=== PATIENT | male | born 1970 | race Caucasian/White ===

== ENCOUNTER 2019-11-12 08:41 | Outpatient (REF) | payer MEDICAID, SELFPAY ==
--- NOTE | 2019-11-12 | US_ITS ---
EXAMINATION: US ABDOMEN COMPLETE CLINICAL INFORMATION: Gastroesophageal reflux with esophagitis. COMPARISON: CT 12/05/2010. TECHNIQUE: Real-time imaging of the abdominal viscera. FINDINGS: PANCREAS: The visualized pancreatic head and body are normal in appearance. The remainder of the pancreas is obscured from visualization by the overlying bowel gas. ABDOMINAL AORTA: The visualized proximal segment is normal in caliber. INFERIOR VENA CAVA: Visualized portions are normal. LIVER: Normal. The liver demonstrates normal size, contour and echogenicity. No focal lesion or intrahepatic biliary duct dilatation. GALLBLADDER: Normal. The gallbladder is physiologically distended without evidence of stones, sludge, polyps, wall thickening or pericholecystic fluid. COMMON BILE DUCT: Normal in caliber measuring 0.3 cm in diameter. RIGHT KIDNEY: Normal. No hydronephrosis. No renal calculi or focal parenchymal lesions. The kidney measures 10.6 cm in maximum dimension. LEFT KIDNEY: Normal. No hydronephrosis. No renal calculi or focal parenchymal lesions. The kidney measures 11.4 cm in maximum dimension. SPLEEN: Normal. The spleen measures 8.1 cm in maximum dimension. FREE FLUID: None. IMPRESSION: Unremarkable abdominal ultrasound.
== END 2019-11-12 08:42 | disposition home or self-care (01) ==
LOC: HO.US 08:41
PROVIDERS: Visit Provider Nurse Practitioner
DX: K21.00 Gastro-esophageal reflux disease with esophagitis, without bleeding (principal)
CPT/HCPCS: 76700

== ENCOUNTER → 2019-12-04 09:34 | Outpatient (BNVA) | payer MEDICAID, SELFPAY | PROVIDERS: PCP Nurse Practitioner Family; Referring Provider Nurse Practitioner Family; Visit Provider Nurse Practitioner | DX: K21.9 Gastro-esophageal reflux disease without esophagitis (principal); K59.00 Constipation, unspecified; R10.10 Upper abdominal pain, unspecified; Z87.11 Personal history of peptic ulcer disease | CPT/HCPCS: 99212 ==

== ENCOUNTER 2019-12-16 12:29 | Outpatient (REF) | payer MEDICAID, SELFPAY | END 2019-12-16 12:30 | disposition home or self-care (01) | LOC: HO.LAB 12:29 | PROVIDERS: Visit Provider Internal Medicine | DX: Z20.828 Contact with and (suspected) exposure to other viral communicable diseases (principal) | CPT/HCPCS: C9803; U0003 ==

== ENCOUNTER → 2020-01-22 07:39 | Outpatient (REF) | payer MEDICAID, SELFPAY ==
--- NOTE | 2020-01-22 07:44 | NM_ITS ---
EXAMINATION: RADIONUCLIDE SOLID FOOD GASTRIC EMPTYING 4-HOUR STUDY CLINICAL INFORMATION: Gastroesophageal reflux disease without esophagitis. COMPARISON: No previous gastric emptying study is available for comparison. TECHNIQUE: A standard meal consisting of 4 oz of Egg Beaters brand tagged with 1.0 mCi Tc-99m Sulfur Colloid, 8 oz water and 2 slices of toast with jelly was administered orally to the patient. Images were obtained using a dual head gamma camera in the anterior and posterior projections over of the stomach immediately post ingestion and at hourly intervals up to 3 hours post ingestion. Images were not obtained at 4 hours due to the minimal retention at 3 hours. The anterior and posterior counts at each time interval were averaged using the geometric mean and expressed as percentage of the immediate post ingestion counts. FINDINGS: There is good visualization of activity in the stomach immediately post ingestion. As the study progresses, there is good clearance of activity from the stomach and visualization of progressively increasing small bowel activity. By the end of the study, there is almost no retention noted in the stomach. Retention in the stomach at each time interval was: 1 hour 23% (normal 37%-90%) 2 hours 15% (normal 30%-60%) 3 hours 2% 4 hours (Not Obtained) (normal 0%-10%) NM/NM gastric emptying study IMPRESSION: Normal solid food gastric emptying study.
== END ==
LOC: HO.NUCMED 07:39
PROVIDERS: PCP Nurse Practitioner Family; Visit Provider Nurse Practitioner
DX: K21.9 Gastro-esophageal reflux disease without esophagitis (principal); R10.10 Upper abdominal pain, unspecified; Z87.11 Personal history of peptic ulcer disease
CPT/HCPCS: 78264; A9541

== ENCOUNTER → 2020-02-05 11:41 | Outpatient (BNVA) | payer MEDICAID, SELFPAY | PROVIDERS: PCP Nurse Practitioner Family; Visit Provider Nurse Practitioner | DX: Z76.89 Persons encountering health services in other specified circumstances (principal) ==

== ENCOUNTER 2020-02-15 22:56 | Emergency (ER) | payer MEDICAID, SELFPAY ==
[2020-02-15 22:57] VITALS: BP 150/86; PULSE 66; RESP 18; TEMP 37.1; O2SAT 97; BMI 23.7
[2020-02-16 01:43] LABS: Basophils Absolute Auto 0.1 X10*3/uL (0.0-0.2); Basophils Percent Auto 0.5 % (0-2); Eosinophils Absolute Auto 0.3 X10*3/uL (0.0-0.4); Hematocrit 39.8 % (42-52); Imm Gran Abs Auto 0.01 X10*3/uL (0.00-0.03); Imm Gran Pct Auto 0.1 % (0.0-0.4); Lymphocytes Absolute Auto 3.3 X10*3/uL (1.2-4.9); Lymphocytes Percent Auto 34.9 % (20-40); MANUAL DIFF FLAG NO; Mean Corpuscular HGB Conc 32.7 g/dl (31.0-36.0); Mean Corpuscular Hemoglobin 30.6 pg (27.0-33.0); Mean Corpuscular Volume 93.6 fL (80-98); Mean Platelet Volume 10.9 fL (9.4-12.4); Monocytes Absolute Auto 0.7 X10*3/uL (0.1-1.2); Monocytes Percent Auto 7.5 % (2-11); Neutrophils Absolute Auto 5.1 X10*3/uL (2.0-8.3); Platelet Count 208 X10*3/uL (160-400); Red Blood Count 4.25 X10*6/uL (4.60-5.80); Red Cell Distribution Width 13.5 % (11.0-16.0); White Blood Count 9.4 X10*3/uL (4.8-10.8)
[2020-02-16] MEDS: 0.9 % Sodium Chloride 1,000 ML 999 ML IV (01:43)
[2020-02-16] MEDS: Ketorolac Tromethamine 30 MG/ML VIAL IVPUSH (01:43)
[2020-02-16 01:44] LABS: Glucose Urine UA NEG (NEG); Leukocyte Esterase Urine NEG (NEG); Nitrite Urine NEG (NEG); Specific Gravity - Urine >= 1.030 (1.005-1.025); Urine Blood NEG (NEG); Urine Ketones NEG (NEG); Urine Protein NEG (NEG-TRACE)
[2020-02-16 01:47] LABS: Appearance Urine CLEAR; Color Urine YELLOW
--- NOTE | 2020-02-16 01:50 | PC.NURSE ---
PT A&O, MEDICATED PER MAR. IV PLACED AND LABS DRAWN AND SENT.
[2020-02-16 01:53] LABS: INTERNATIONAL NORM RATIO 1.1 (0.9-1.1); Prothrombin Time 13.1 SEC (10.8-13.0)
[2020-02-16 01:56] LABS: Partial Thromboplastin Time 33.1 SEC (24.1-38.0)
--- NOTE | 2020-02-16 01:58 | CT_ITS ---
EXAMINATION: CT ABDOMEN AND PELVIS WITH CONTRAST CLINICAL INFORMATION: Right lower quadrant pain. Question appendicitis. COMPARISON: CT 11/18/2010 TECHNIQUE: Multidetector volumetric images were obtained from the superior aspect of the liver through the pubic symphysis following administration 85 mL of Omnipaque 350 intravenous contrast. Sagittal and coronal reformatted images were obtained on the technologist's workstation. Oral contrast: No This CT examination was performed using dose optimization techniques as appropriate, variously including the following: *Automated exposure control *Adjustment of mA and/or kV according to patient size (this includes techniques or standardized protocols for targeted exams where dose is matched to indication/reason for exam; i.e. extremities or head) *Use of iterative reconstruction technique DLP: 503 mGy-cm FINDINGS: LUNG BASES: The visualized lung bases are unremarkable. LIVER, GALLBLADDER, AND BILIARY TREE: The liver is normal in size, shape, and attenuation. No focal hepatic lesion or biliary ductal dilatation is present. The gallbladder is unremarkable with no evidence of radiopaque gallstones, gallbladder wall thickening, or obvious pericholecystic inflammatory changes. PANCREAS: Unremarkable. SPLEEN: Unremarkable. ADRENAL GLANDS: Unremarkable. KIDNEYS AND URETERS: The kidneys are normal in size, shape, and attenuation. No hydronephrosis, hydroureter, or calculi seen. No perinephric stranding. BLADDER: Unremarkable. GASTROINTESTINAL TRACT: The stomach is decompressed with no gross abnormality. Normal caliber small bowel. No obstruction. Normal appendix. No colonic wall thickening or acute inflammatory change. No free air. No free fluid. ABDOMINAL WALL: No significant hernia is appreciated. LYMPH NODES: Normal. VASCULAR: Normal caliber aorta. Duplicated inferior vena cava. PELVIC VISCERA: The prostate and seminal vesicles are unremarkable. OSSEOUS STRUCTURES: No acute or suspicious osseous abnormality. CT/CT abdomen pelvis w con IMPRESSION: No acute findings in the abdomen or pelvis. No inflammatory changes. Normal appendix.
--- NOTE | 2020-02-16 01:58 | ED.ABDPAIN ---
HPI - Abdominal Pain General Chief Complaint: Abdominal Pain Stated Complaint: pelvic pain Time Seen by Provider: 02/16/20 01:09 Source: patient Mode of arrival: ambulatory Limitations: no limitations History of Present Illness HPI narrative: Patient presents to ED for right lower quadrant/right suprapubic be pain for the past 3 days. Patient states no nausea, vomiting, flank pain, fever, chills, testicular pain, testicular swelling, penile discharge, penile lesions. Patient denies any recent trauma to the abdomen. MD elicited complaint: abdominal pain Related Data Home Medications Medication Instructions Recorded Confirmed Lactobacillus acidophilus 10,000 mmu cells PO DAILY 12/03/19 12/03/19 Previous Rx's Medication Instructions Recorded Carafate 1 gram tablet 1 g PO BID #60 tab NS 12/04/19 sennosides 8.6 mg capsule 17.2 mg PO BEDTIME 30 Days #60 cap 12/04/19 pantoprazole 40 mg tablet,delayed 40 mg PO BID #60 tab 12/17/19 release Allergies Allergy/AdvReac Type Severity Reaction Status Date / Time No Known Allergies Allergy Verified 02/05/20 11:42 Review of Systems Review of Systems Yes all other systems are reviewed and are negative Constitutional: Reports as per HPI and Reports no additional constitutional complaints Eyes: Reports as per HPI and Reports no additional eye complaints Reports system reviewed and no additional complaints, except as documented and Reports as per HPI Cardiovascular: Reports as per HPI and Reports no additional cardiovascular complaints Respiratory: Reports as per HPI and Reports no additional respiratory complaints Gastrointestinal: Reports as per HPI, Reports no additional gastrointestinal complaints and Reports abdominal pain (Right lower quad) Musculoskeletal: Reports no additional musculoskeletal complaints and Reports as per HPI Reports system reviewed and no additional complaints, except as documented and Reports as per HPI Psychiatric: Reports no additional psychiatric complaints and Reports as per HPI Physical Exam Vital Signs: Vital Signs: Last Vital Signs Temp 98.7 F 02/15/20 22:57 Pulse 66 02/15/20 22:57 Resp 18 02/15/20 22:57 BP 150/86 H 02/15/20 22:57 Pulse Ox 97 02/15/20 22:57 Body Mass Index 23.7 Const: General: cooperative, healthy appearing, comfortable, no acute distress, well developed, alert and awake Orientation/consciousness: patient oriented x3 HENMT: Head: Yes normal to inspection and Yes No palpable skull fracture present Eyes: General: appearance normal, both eyes and all related structures Neck: Neck: Yes normal visual inspection, Yes full ROM, Yes no lymphadenopathy, Yes no meningeal signs, Yes trachea midline, Yes supple and No tender Chest: Chest palpation & inspection: normal inspection of the chest and normal palpation of entire chest wall Resp: Effort & Inspection: normal respiratory effort and able to speak in complete sentences Auscultation: clear to auscultation bilaterally Cardio: Jugular venous distension: no JVD Heart sounds: S1 normal heart sound present and S2 normal heart sound present GI: Inspection: Yes normal to inspection Palpation (GI): Soft to palpation, not firm, Tenderness to palpation present (GI) in the RLQ and suprapubicly, no guarding and not rigid : Other: Negative for mass in groin to indicate hernia General: No CVA tenderness Male General Exam: Yes normal external exam and No Genital lesions present Penis: normal penis, circumcised, no condylomata, no masses, no nodules, no papules, no pustules, no vesicles, no swelling, no ulcerations and No Genital lesions present Meatus: meatus normal Scrotum: scrotum normal, cremasteric reflex present, no ecchymosis, not edematous, not erythematous, testes descended bilaterally, no masses, no scrotal swelling, no ulcerations and no varicoceles Testes: Testes normal and testicular lie normal Back/Spine/Pelvis: Back: No CVA tenderness and No back tenderness Skin: General skin exam: no rashes or lesions noted Neuro: General: patient oriented x3, no meningeal signs and CN's II-XI intact bilaterally Cranial nerves: Yes CN's II-XII intact bilaterally Extrem: General: Yes normal to inspection and Yes full ROM Psych: Appearance: grossly normal, well kempt and not disheveled Course Course Course Narrative: Patient have patient had basic labs drawn given fluids, and Toradol. Reevaluation(s) Reevaluation #1: Urinalysis negative for blood. Patient was sent for CT scan to rule out appendicitis. Testicular exam and groin exam does not indicate hernia, torsion, or an STD. Case will be signed out to Dr. Parada Time: 02:04 MDM - Abdominal Pain MDM Narrative Medical decision making narrative: Abdominal pain Lab Data Result diagrams: 02/16/20 01:37 02/16/20 01:37 Labs: Lab Results 02/16/20 02/16/20 02/16/20 Range/Units 01:37 01:37 01:37 WBC 9.4 (4.8-10.8) X10*3/uL RBC 4.25 L (4.60-5.80) X10*6/uL Hgb 13.0 L (14.0-18.0) g/dl Hct 39.8 L (42-52) % MCV 93.6 (80-98) fL MCH 30.6 (27.0-33.0) pg MCHC 32.7 (31.0-36.0) g/dl RDW 13.5 (11.0-16.0) % Plt Count 208 (160-400) X10*3/uL MPV 10.9 (9.4-12.4) fL Immature Gran % (Auto) 0.1 (0.0-0.4) % Neut % (Auto) 54.0 (45-73) % Lymph % (Auto) 34.9 (20-40) % [place] % (Auto) 7.5 (2-11) % Eos % (Auto) 3.0 (0-4) % Baso % (Auto) 0.5 (0-2) % Lymph # (Auto) 3.3 (1.2-4.9) X10*3/uL [place]linger # (Auto) 0.7 (0.1-1.2) X10*3/uL Eos # (Auto) 0.3 (0.0-0.4) X10*3/uL Baso # (Auto) 0.1 (0.0-0.2) X10*3/uL Abs Immat Gran (auto) 0.01 (0.00-0.03) X10*3/uL Absolute Neuts (auto) 5.1 (2.0-8.3) X10*3/uL Absolute Nucleated RBC 0.000 (0.0-0.012) X10*3/uL Nucleated RBC % (auto) 0.0 (0.0-0.2) /100WBC PT 13.1 H (10.8-13.0) SEC INR 1.1 (0.9-1.1) APTT 33.1 (24.1-38.0) SEC Urine Color YELLOW Urine Appearance CLEAR Urine pH 6.0 (5.0-8.0) Ur Specific [place] >= 1.030 H (1.005-1.025) Urine Protein NEG (NEG-TRACE) MG/DL Urine Glucose (UA) NEG (NEG) MG/DL Urine Ketones NEG (NEG) MG/DL Urine Blood NEG (NEG) Urine Nitrite NEG (NEG) Ur Leukocyte Esterase NEG (NEG) Discharge Plan Discharge Clinical Impression: Abdominal pain Prescriptions: No Action pantoprazole [Protonix] 40 mg tablet,delayed release (DR/EC) 40 mg PO BID Qty: 60 RF: 3 Lactobacillus acidophilus [Acidophilus] Capsule 10,000 mmu cells PO DAILY RF: 0 senna 8.6 mg capsule 17.2 mg PO BEDTIME 30 Days Qty: 60 RF: 1 sucralfate [Carafate] 1 gram tablet 1 g PO BID Qty: 60 RF: 0 PMFSH Past Medical History Medical History (Updated 02/16/20 @ 02:06 by MAI Caballero) History of Helicobacter pylori infection Surgical History (Updated 12/04/19 @ 09:44 by JOSE Jessica) History of esophagogastroduodenoscopy (EGD) Hx of colonoscopy Family History Family History (Updated 12/04/19 @ 09:41 by JOSE Jessica) Father HTN (hypertension) Prostate cancer Asthma Kidney stones Mother HTN (hypertension) Social History Social History (Updated 02/05/20 @ 11:43 by JOSE Jessica) Alcohol intake: current Alcohol intake frequency: holidays/special occasions only Smoking Status: Never smoker Advance Directives: No Advance Directives Information Provided: No
[2020-02-16 02:00] VITALS: BP 150/86; PULSE 66; RESP 18; TEMP 37.1; O2SAT 97
[2020-02-16 02:22] LABS: Alanine Aminotransferase 33 U/L (0-40); Albumin Level 3.9 g/dL (3.5-5.0); Alkaline Phosphatase 57 U/L (39-117); Anion Gap 13 (12-20); Aspartate Amino Transferase 25 U/L (5-37); Bilirubin Direct < 0.2 mg/dL (0.0-0.5); Bilirubin Total 0.3 mg/dL (0.0-1.0); Blood Urea Nitrogen 20 mg/dL (9-16); Calcium 8.5 mg/dL (8.4-10.2); Carbon Dioxide 24 mmol/L (22-29); Chloride 107 mmol/L (96-108); Creatinine Clr Calc Pharmacy 120.6; Estimated Glomerular Filt Rate > 60; Glucose Random 99 mg/dL (60-115); Lipase 37 U/L (8-78); Potassium 4.3 mmol/l (3.3-5.1); Sodium 140 mmol/L (135-145); Total Protein 7.2 g/dL (6.5-8.0)
[2020-02-16] MEDS: iohexoL 350 MG/ML 100 ML INFUS..BTL 85 ML IV (02:49)
== END 2020-02-16 04:43 | disposition home or self-care (01) ==
PROVIDERS: Physician Assistant; Emergency Provider Emergency Medicine Emergency Medical Services; PCP Nurse Practitioner Family
DX: R10.31 Right lower quadrant pain (principal); Z79.899 Other long term (current) drug therapy
CPT/HCPCS: 36415; 74177; 80053; 80076; 81003; 82248; 83690; 85025; 85610; 85730; 96361; 96374; 99284; J1885; Q9967

== ENCOUNTER → 2020-03-04 11:39 | Outpatient (BNVA) | payer MEDICAID, SELFPAY | PROVIDERS: PCP Nurse Practitioner Family; Visit Provider Nurse Practitioner | DX: Z76.89 Persons encountering health services in other specified circumstances (principal) ==

== ENCOUNTER 2020-03-29 11:16 | Emergency (ER) | payer MEDICAID, SELFPAY ==
--- NOTE | ~2020-03-29 | CT_ITS ---
EXAMINATION: CT HEAD WITHOUT CONTRAST CLINICAL INFORMATION: Headache COMPARISON: None TECHNIQUE: Contiguous axial imaging was performed from the skull base to vertex without intravenous administration of contrast. This CT examination was performed using dose optimization techniques as appropriate, variously including the following: *Automated exposure control *Adjustment of mA and/or kV according to patient size (this includes techniques or standardized protocols for targeted exams where dose is matched to indication/reason for exam; i.e. extremities or head) *Use of iterative reconstruction technique DLP: 772 mGy-cm FINDINGS: There is no evidence of acute intracranial hemorrhage or territorial infarction. No abnormal mass effect or midline shift is seen. Alonso to white matter differentiation is well preserved. No extra-axial fluid collections are identified. The ventricles are normal in size. There is no abnormal attenuation within the brain parenchyma. The osseous structures and soft tissues are normal. The mastoid air cells and visualized portions of the paranasal sinuses are well aerated. CT/CT head/brain wo con IMPRESSION: Unremarkable exam.
[2020-03-29 11:48] VITALS: BP 158/93; PULSE 68; RESP 18; TEMP 36.3; O2SAT 99; BMI 24429.3
[2020-03-29 15:42] VITALS: BP 127/84; PULSE 70; RESP 16; O2SAT 98
--- NOTE | 2020-03-29 15:58 | ED_ITS ---
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 States he has had this headache since 2 days now also checked his blood pressure at home and w as very high with a reading of 150/93 states he is concerned he has never had high blood pressure before. He otherwise denies any neck pain, fever, weight loss. Does report the headache does make him slightly dizzy for past several days as well. Denies any vision changes, gait abnormality. States the headache has been present and gradually getting worse over past couple days. MD elicited complaint: headache Onset (ago): day(s) Onset description: gradually Location: left and frontal Quality & Timing: aching Relieving factors: NSAIDs (Will go away with ibuprofen but come back) Associated symptoms: none Treatments prior to arrival: none Related Data Home Medications Medication Instructions Recorded Confirmed Lactobacillus acidophilus 10,000 mmu cells PO DAILY 12/03/19 12/03/19 Previous Rx's Medication Instructions Recorded pantoprazole 40 mg tablet,delayed 40 mg PO BID #60 tab 03/04/20 release sennosides 8.6 mg capsule 17.2 mg PO BEDTIME PRN 30 Days #60 03/04/20 cap amoxicillin-pot clavulanate 1 tab PO Q12H 7 Days #14 tab 03/29/20 [Augmentin] naproxen 500 mg PO BID PRN #14 tab 03/29/20 Allergies Allergy/AdvReac Type Severity Reaction Status Date / Time No Known Allergies Allergy Verified 02/05/20 11:42 Review of Systems Review of Systems: Constitutional: No Weight loss, No Fever, No Chills, No Night Sweats, No Fatigue, No Malaise ENT/Mouth: No Hearing loss, No Ear Pain, + Nasal Congestion, No Sinus Pain, No Hoarseness, No sore throat, No Rhinorrhea, No Swallowing Difficulty Eyes: No Eye Pain, No Swelling, No Redness, No Foreign Body, No Discharge, No Vision Changes Cardiovascular: No Chest Pain, No SOB, No Dyspnea on Exertion, No Orthopnea, No Edema, No Palpitations Respiratory: No Cough, No Sputum, No Wheezing, No Smoke Exposure, No Dyspnea Gastrointestinal: No Nausea, No Vomiting, No Diarrhea, No Constipation, No abdominal Pain, No Hematochezia, No Melena Genitourinary: No Dysuria, No Urinary Frequency, No Hematuria, No Urinary Incontinence, No Urgency, No Flank Pain, No Urinary Flow Changes, No Hesitancy Musculoskeletal: No joint pain, No Myalgias, No Joint Swelling Skin: No Skin Lesions, No rash Neuro: No Weakness, No Numbness, No Paresthesias, No Loss of Consciousness, No Dizziness, + Headache Psych: No Social Issues Heme/Lymph: No Bruising, No Bleeding,No Lymphadenopathy Endocrine: No Polyuria, No Polydipsia, No Temperature Intolerance Yes all other systems are reviewed and are negative [facility] Past Medical History Medical History (Updated 03/30/20 @ 00:00 by Jess Ramirez) History of Helicobacter pylori infection Surgical History (Updated 12/04/19 @ 09:44 by JOSE Jessica) History of esophagogastroduodenoscopy (EGD) Hx of colonoscopy Family History Family History (Updated 12/04/19 @ 09:41 by JOSE Jessica) Father HTN (hypertension) Prostate cancer Asthma Kidney stones Mother HTN (hypertension) Social History Social History (Updated 03/04/20 @ 11:37 by Bertha Martin) Household Members: Family Alcohol intake: unknown Smoking Status: Unknown if ever smoked Advance Directives: Yes Advance Directives Information Provided: Yes Advance Directives on File: No Current occupational status: employed Current occupation: [employer] Physical Exam Vital Signs: Vital Signs: Last Vital Signs Temp 98.3 F 03/29/20 16:53 Pulse 56 03/29/20 16:53 Resp 16 03/29/20 16:53 BP 144/86 H 03/29/20 16:53 Pulse Ox 99 03/29/20 16:53 Body Mass Index 23.7 Reviewed Const: General: cooperative and healthy appearing; No acute distress or intoxicated appearing Nutritional Appearance: average body habitus Orientation/consciousness: patient oriented x3 HENMT: Head: Yes normal to inspection Ears: hearing grossly normal bilaterally Face and sinus: Yes sinus tenderness (Bilateral frontal sinuses left more than right.) Eyes: General: appearance normal, both eyes and all related structures Visual Solorio: normal visual solorio by confrontation Neck: Neck: Yes normal visual inspection, No positive Brudzinski's sign, No positive Kernig's sign and No tender Thyroid: Thyroid normal Chest: Chest palpation & inspection: normal inspection of the chest Resp: Effort & Inspection: normal respiratory effort Auscultation: clear to auscultation bilaterally Cardio: Jugular venous distension: no JVD Rhythm: regular rhythm Heart sounds: S1 normal heart sound present and S2 normal heart sound present GI: Inspection: Yes normal to inspection Percussion: Yes normal to percussion Auscultation: normal bowel sounds : General: Yes no CVA tenderness Back/Spine/Pelvis: Back: no CVA tenderness Skin: General skin exam: no rashes or lesions noted Neuro: General: patient oriented x3 Extrem: General: Yes normal to inspection NIH Stroke Scale Internal: Initial- Upon Arrival Level of Consciousness: Alert Level of Consciousness Questions: Answers both questions correctly Level of Consciousness Commands: Performs both tasks correctly Best Gaze: Normal Visual: No visual loss Facial Palsy: Normal Motor Arm (Right): No drift Motor Arm (Left): No drift Motor Leg (Right): No drift Motor Leg (Left): No drift Limb Ataxia: Absent Sensory: Normal Best Language: No aphasia Dysarthia: Normal Extinction and Inattention: No abnormality Score: 0 Course Course Course Narrative: Seems very fixated on blood pressure repeat blood pressure of 144/86 pulse of 56 temperature of 98.3 degrees pulse ox of 99%. At this point I would not initiate any pharmacological treatment for this pressure some lifestyle modification, as it relates to his headache head CT negative his exam is more consistent with frontal sinusitis will start him on antibiotics. He is nontoxic appearing. No meningeal sign. No findings to suggest cerebellar involvement, ambulatory steady gait. MDM - Headache Differential Diagnosis Differential diagnosis: Likely migraine, tension headache, headache and sinusitis; Unlikely subarachnoid hemorrhage, meningitis and postconcussion syndrome Medical Records Attestation: I reviewed the patient's medical records. Lab Data Attestation: I reviewed the patient's lab results. Result diagrams: 03/29/20 16:36 03/29/20 16:36 Labs: Lab Results 03/29/20 03/29/20 03/29/20 Range/Units 16:35 16:36 16:36 WBC 9.0 (4.8-10.8) X10*3/uL RBC 4.85 (4.60-5.80) X10*6/uL Hgb 14.9 (14.0-18.0) g/dl Hct 44.7 (42-52) % MCV 92.2 (80-98) fL MCH 30.7 (27.0-33.0) pg MCHC 33.3 (31.0-36.0) g/dl RDW 13.2 (11.0-16.0) % Plt Count 209 (160-400) X10*3/uL MPV 10.7 (9.4-12.4) fL Immature Gran % (Auto) 0.2 (0.0-0.4) % Neut % (Auto) 72.1 (45-73) % Lymph % (Auto) 20.8 (20-40) % [place] % (Auto) 5.3 (2-11) % Eos % (Auto) 1.3 (0-4) % Baso % (Auto) 0.3 (0-2) % Lymph # (Auto) 1.9 (1.2-4.9) X10*3/uL [place] # (Auto) 0.5 (0.1-1.2) X10*3/uL Eos # (Auto) 0.1 (0.0-0.4) X10*3/uL Baso # (Auto) 0.0 (0.0-0.2) X10*3/uL Abs Immat Gran (auto) 0.02 (0.00-0.03) X10*3/uL Absolute Neuts (auto) 6.5 (2.0-8.3) X10*3/uL Absolute Nucleated RBC 0.000 (0.0-0.012) X10*3/uL Nucleated RBC % (auto) 0.0 (0.0-0.2) /100WBC ESR 19 H (0-15) MM/HR PT (10.8-13.0) SEC INR (0.9-1.1) APTT (24.1-38.0) SEC Sodium 139 (135-145) mmol/L Potassium 4.3 (3.3-5.1) mmol/L Chloride 103 (96-108) mmol/L Carbon Dioxide 27 (22-29) mmol/L Anion Gap 13 (12-20) BUN 15 (9-16) mg/dL Creatinine 0.89 (0.5-1.4) mg/dL Estim Creat Clear Calc 105.7 Estimated GFR > 60 Random Glucose 76 (60-115) mg/dL Calcium 9.3 D (8.4-10.2) mg/dL Total Bilirubin 1.1 H (0.0-1.0) mg/dL AST 30 (5-37) U/L ALT 41 H (0-40) U/L Alkaline Phosphatase 49 (39-117) U/L C-Reactive Protein 0.11 (< or = 0.50) mg/dL Total Protein 7.8 (6.5-8.0) g/dL Albumin 4.6 (3.5-5.0) g/dL Coronavirus (PCR) (Negative) Influenza Type A (PCR) (Negative) Influenza Type B (PCR) (Negative) RSV RNA Qual (PCR) (Negative) 03/29/20 03/29/20 Range/Units 16:36 17:08 WBC (4.8-10.8) X10*3/uL RBC (4.60-5.80) X10*6/uL Hgb (14.0-18.0) g/dl Hct (42-52) % MCV (80-98) fL MCH (27.0-33.0) pg MCHC (31.0-36.0) g/dl RDW (11.0-16.0) % Plt Count (160-400) X10*3/uL MPV (9.4-12.4) fL Immature Gran % (Auto) (0.0-0.4) % Neut % (Auto) (45-73) % Lymph % (Auto) (20-40) % [place] % (Auto) (2-11) % Eos % (Auto) (0-4) % Baso % (Auto) (0-2) % Lymph # (Auto) (1.2-4.9) X10*3/uL [place] # (Auto) (0.1-1.2) X10*3/uL Eos # (Auto) (0.0-0.4) X10*3/uL Baso # (Auto) (0.0-0.2) X10*3/uL Abs Immat Gran (auto) (0.00-0.03) X10*3/uL Absolute Neuts (auto) (2.0-8.3) X10*3/uL Absolute Nucleated RBC (0.0-0.012) X10*3/uL Nucleated RBC % (auto) (0.0-0.2) /100WBC ESR (0-15) MM/HR PT 13.3 H (10.8-13.0) SEC INR 1.1 (0.9-1.1) APTT 35.2 (24.1-38.0) SEC Sodium (135-145) mmol/L Potassium (3.3-5.1) mmol/L Chloride (96-108) mmol/L Carbon Dioxide (22-29) mmol/L Anion Gap (12-20) BUN (9-16) mg/dL Creatinine (0.5-1.4) mg/dL Estim Creat Clear Calc Estimated GFR Random Glucose (60-115) mg/dL Calcium (8.4-10.2) mg/dL Total Bilirubin (0.0-1.0) mg/dL AST (5-37) U/L ALT (0-40) U/L Alkaline Phosphatase (39-117) U/L C-Reactive Protein (< or = 0.50) mg/dL Total Protein (6.5-8.0) g/dL Albumin (3.5-5.0) g/dL Coronavirus (PCR) NEGATIVE (Negative) Influenza Type A (PCR) NEGATIVE (Negative) Influenza Type B (PCR) NEGATIVE (Negative) RSV RNA Qual (PCR) NEGATIVE (Negative) Imaging Data CT scan - head: Radiologist's impression: [address] [id number] Scan ReportSigned Patient: Ehsan Fritz BMR#: [id number]: 0Acct:[id number]/Sex: 49 / MADM Date: 03/29/20Loc: E[address]ttm[address] Dr: Ordering Physician: Padilla Wallace NP Date of Service: 03/29/20 Procedure(s): CT head/brain wo con Accession Number(s): [id number] cc: Padilla Wallace MERCHANDISE MANAGER~ EXAMINATION: CT HEAD WITHOUT CONTRAST CLINICAL INFORMATION: Headache COMPARISON: None TECHNIQUE: Contiguous axial imaging was performed from the skull base to vertex without intravenous administration of contrast. This CT examination was performed using dose optimization techniques as appropriate, variously including the following: *Automated exposure control *Adjustment of mA and/or kV according to patient size (this includes techniques or standardized protocols for targeted exams where dose is matched to indication/reason for exam; i.e. extremities or head) *Use of iterative reconstruction technique DLP: 772 mGy-cm FINDINGS: There is no evidence of acute intracranial hemorrhage or territorial infarction. No abnormal mass effect or midline shift is seen. Alonso to white matter differentiation is well preserved. No extra-axial fluid collections are identified. The ventricles are normal in size. There is no abnormal attenuation within the brain parenchyma. The osseous structures and soft tissues are normal. The mastoid air cells and visualized portions of the paranasal sinuses are well aerated. CT/CT head/brain wo con IMPRESSION: Unremarkable exam. Dictated By:JERI WELLER MDSigned By:<Electronically signed by JERI WELLER MD in OV>03/29/20 1628 DD/ 1603TD/TT: Broadcast Supervisor: AARON Discharge Plan Discharge Clinical Impression: Sinusitis, Headache Patient Disposition: Home, Self-Care Instructions: Sinusitis (ED) Prescriptions: New naproxen 500 mg tablet 500 mg PO BID PRN (Reason: pain) Qty: 14 RF: 0 amoxicillin-pot clavulanate [Augmentin] 875-125 mg tablet 1 tab PO Q12H 7 Days Qty: 14 RF: 0 No Action pantoprazole [Protonix] 40 mg tablet,delayed release (DR/EC) 40 mg PO BID Qty: 60 RF: 3 senna 8.6 mg capsule 17.2 mg PO BEDTIME PRN (Reason: constipation) 30 Days Qty: 60 RF: 1 Lactobacillus acidophilus [Acidophilus] Capsule 10,000 mmu cells PO DAILY RF: 0 Referrals: Bertha Resendiz DO [Primary Care Provider] - 1 week Interventions: ED Discharge Assessment Last Done: 03/29/20 19:00 Discharge Date/Time: 03/29/20 19:00
[2020-03-29] MEDS: Acetaminophen 325 MG TABLET 975 MG PO (16:14)
[2020-03-29 16:42] LABS: MANUAL DIFF FLAG NO
[2020-03-29 16:45] LABS: Basophils Percent Auto 0.3 % (0-2); Eosinophils Absolute Auto 0.1 X10*3/uL (0.0-0.4); Eosinophils Percent Auto 1.3 % (0-4); Hematocrit 44.7 % (42-52); Hemoglobin 14.9 g/dl (14.0-18.0); Imm Gran Abs Auto 0.02 X10*3/uL (0.00-0.03); Imm Gran Pct Auto 0.2 % (0.0-0.4); Lymphocytes Absolute Auto 1.9 X10*3/uL (1.2-4.9); Lymphocytes Percent Auto 20.8 % (20-40); Mean Corpuscular HGB Conc 33.3 g/dl (31.0-36.0); Mean Corpuscular Hemoglobin 30.7 pg (27.0-33.0); Mean Corpuscular Volume 92.2 fL (80-98); Mean Platelet Volume 10.7 fL (9.4-12.4); Monocytes Absolute Auto 0.5 X10*3/uL (0.1-1.2); Monocytes Percent Auto 5.3 % (2-11); Neutrophils Absolute Auto 6.5 X10*3/uL (2.0-8.3); Neutrophils Percent Auto 72.1 % (45-73); Platelet Count 209 X10*3/uL (160-400); Red Blood Count 4.85 X10*6/uL (4.60-5.80); Red Cell Distribution Width 13.2 % (11.0-16.0)
[2020-03-29 16:53] VITALS: BP 144/86; PULSE 56; RESP 16; TEMP 36.8; O2SAT 99
[2020-03-29 16:55] LABS: INTERNATIONAL NORM RATIO 1.1 (0.9-1.1); Prothrombin Time 13.3 SEC (10.8-13.0)
[2020-03-29 16:58] LABS: Partial Thromboplastin Time 35.2 SEC (24.1-38.0)
[2020-03-29 17:13] LABS: Alanine Aminotransferase 41 U/L (0-40); Albumin Level 4.6 g/dL (3.5-5.0); Alkaline Phosphatase 49 U/L (39-117); Anion Gap 13 (12-20); Aspartate Amino Transferase 30 U/L (5-37); Bilirubin Total 1.1 mg/dL (0.0-1.0); Blood Urea Nitrogen 15 mg/dL (9-16); C Reactive Protein 0.11 mg/dL (< or = 0.50); Calcium 9.3 mg/dL (8.4-10.2); Carbon Dioxide 27 mmol/L (22-29); Chloride 103 mmol/L (96-108); Estimated Glomerular Filt Rate > 60; Glucose Random 76 mg/dL (60-115); Potassium 4.3 mmol/L (3.3-5.1); Sodium 139 mmol/L (135-145); Total Protein 7.8 g/dL (6.5-8.0)
[2020-03-29 17:23] LABS: Erythrocyte Sedimentation Rate 19 MM/HR (0-15)
[2020-03-29 17:37] VITALS: BMI 23.7
[2020-03-29 17:40] LABS: Creatinine Clr Calc Pharmacy 105.7
[2020-03-29 17:54] LABS: Influenza A PCR NEGATIVE (Negative); Influenza B PCR NEGATIVE (Negative); Resp Syncy Virus RNA Qual PCR NEGATIVE (Negative); SARS COV2 PCR INHOUSE NEGATIVE (Negative)
== END 2020-03-29 19:00 | disposition home or self-care (01) ==
PROVIDERS: Nurse Practitioner Primary Care; Emergency Provider Internal Medicine; PCP Family Medicine
DX: J32.9 Chronic sinusitis, unspecified (principal); Z20.822 Contact with and (suspected) exposure to COVID-19; Z79.899 Other long term (current) drug therapy
CPT/HCPCS: 0241U; 36415; 70450; 80053; 85025; 85610; 85652; 85730; 86140; 99284

== ENCOUNTER → 2020-04-28 11:01 | Outpatient (BNVA) | payer MEDICAID, SELFPAY | PROVIDERS: PCP Internal Medicine; Visit Provider Surgery | DX: K40.20 Bilateral inguinal hernia, without obstruction or gangrene, not specified as recurrent (principal) | CPT/HCPCS: 99202 ==

== ENCOUNTER 2020-05-07 06:43 | Day surgery (SDC) | payer MEDICAID, SELFPAY ==
--- NOTE | 2020-05-06 09:02 | P.CONAN_ITS ---
Documented by User: Yue Burciaga 05/06/20 09:11 HPI - Anesthesia Eval Consult details Narrative: 49yo M for Bilateral Hernia Repair Inguinal PMFSH Active Problems Active Problems: All Active Problems (Updated 04/28/20 @ 12:29 by Des Fitzgerald MD) Bilateral inguinal hernia (Acute) Upper abdominal pain (Acute) Constipation (Acute) History of peptic ulcer disease (Acute) GERD (gastroesophageal reflux disease) (Acute) Past Medical History Medical History GERD (gastroesophageal reflux disease) History of Helicobacter pylori infection History of peptic ulcer disease Family History Family History Father HTN (hypertension) Prostate cancer Asthma Kidney stones Mother HTN (hypertension) Surgical History Surgical History History of esophagogastroduodenoscopy (EGD) Hx of colonoscopy Social History Social History Household Members: Family Alcohol intake: unknown Smoking Status: Never smoker Use of substances other than those prescribed or required for medical reasons: No Advance Directives: No Advance Directives Information Provided: Yes Current occupational status: employed Current occupation: [employer] Allergies Allergy/AdvReac Type Severity Reaction Status Date / Time No Known Allergies Allergy Verified 05/07/20 06:50 Home Medications Medication Instructions Recorded Confirmed Last Taken Type Lactobacillus acidophilus 10,000 mmu cells PO DAILY 12/03/19 04/28/20 Unknown History Exam Exam Date and Time: May 06, 2020 09 Pertinent Lab Results Pertinent Lab Results: Laboratory Tests 03/29/20 03/29/20 16:36 16:36 WBC 9.0 Hgb 14.9 Hct 44.7 Plt Count 209 Sodium 139 Potassium 4.3 Chloride 103 Carbon Dioxide 27 BUN 15 Creatinine 0.89 Assessment and Plan Assessment Anesthesia Assessment: Chart Reviewed Documented by User: Erica Ramos 05/07/20 08:05 [facility] Past Medical History Medical History GERD (gastroesophageal reflux disease) History of Helicobacter pylori infection History of peptic ulcer disease Family History Family History Father HTN (hypertension) Prostate cancer Asthma Kidney stones Mother HTN (hypertension) Surgical History Surgical History History of esophagogastroduodenoscopy (EGD) Hx of colonoscopy Social History Social History Household Members: Family Alcohol intake: unknown Smoking Status: Never smoker Use of substances other than those prescribed or required for medical reasons: No Advance Directives: No Advance Directives Information Provided: Yes Current occupational status: employed Current occupation: [employer] Allergies Allergy/AdvReac Type Severity Reaction Status Date / Time No Known Allergies Allergy Verified 05/07/20 06:50 Home Medications Medication Instructions Recorded Confirmed Last Taken Type Lactobacillus acidophilus 10,000 mmu cells PO DAILY 12/03/19 04/28/20 Unknown History Exam Airway Mallampati Class: II TM Dist: >3cm Neck ROM: Full Assessment and Plan Assessment Anesthesia Assessment: Anesthesia Plan Discussed and Chart Reviewed Final Anesthetic Review NPO: Yes ASA Class: II Final Preanesthetic Review: No Changes in Pt Med Stat, Meds/Allgs Chart Reviewed, Consent Obtained/Reviewed and Anes Risks/Benef Reviewed Patient Risk: Low Procedure Risk: Low Assessment/Block/Sedation in SS: Assess/Block/Sedation-SS Anesthetic Plan Anesthetic Plan: GA Disposition: Standard PACU
[2020-05-06 10:47] VITALS: BMI 23.6
[2020-05-07] VITALS (16 sets, daily range): BP systolic 106–138; BP diastolic 58–81; PULSE 65–85; RESP 16–18; TEMP 36.1–36.2; O2SAT 97–99; BMI 23.7
[2020-05-07] MEDS: Lactated Ringers 1,000 ML 100 ML IVCONT (07:14)
--- NOTE | 2020-05-07 07:50 | MHC.SHP ---
Pre-Procedural Eval Section A The patient is an INPATIENT: No Changes since office visit: Yes Patient answered all questions; No Cold of Flu in the past 2 weeks, No New Medical Problems and No Changes in Medication The History & Physical has been completed within 30 days and I have reviewed it.: Yes Section B Chief Complaint: inguinal hernia Allergies: Allergies Allergy/AdvReac Type Severity Reaction Status Date / Time No Known Allergies Allergy Verified 05/07/20 06:50 Plan Diagnosis/Plan: Unchanged I have reviewed the history and physical and performed a pertinent physical examination on my patient. No changes have occurred unless specified.
--- NOTE | 2020-05-07 10:50 | P.OP_ITS ---
Operative Note Operative Note Date of Service: 05/07/20 Narrative: Preoperative diagnosis: Bilateral inguinal hernias Postoperative diagnosis: Same Procedure: Repair of bilateral inguinal hernias with mesh Surgeon: Des Fitzgerald MD Physician Practice Market Manager: NONE Anesthesia: General LMA Indications for procedure: 49-year-old male with palpable bilateral inguinal hernias noting pain especially on the right side. Operative findings: Bilateral indirect inguinal hernias. Specimen: Hernia sac and lipoma left side Estimated blood loss: 5 mL Complications: None Procedure details: Patient was brought to the OR and placed in a supine position. After administering general anesthesia the patient's abdomen was prepped with ChloraPrep and draped in sterile fashion. A surgical time-out called the consent confirmed. Patient received preoperative antibiotics and Venodyne boots were in place. Local anesthesia consisting of 0.5% Sensorcaine with epinephrine was infiltrated over the bilateral inguinal ligaments. Starting on the left side incision was made over the left inguinal ligament carried out through subcutaneous tissue past Rudy's fascia and up to the external oblique aponeurosis. Additional local was infiltrated below the aponeurosis. This was then opened with a scalpel and widened with the Metzenbaum scissors. The spermatic cord was then dissected from the surrounding inguinal canal. This was then retracted using a Toshia drain. The floor of the inguinal canal was found to be intact with no hernia. Fibers of the cremasteric muscle were then in a small hernia sac identified. There is also a small lipoma of the cord. The lipoma of the co rd was removed. Hernia sac was then dissected free from the surrounding cord contents down to the internal ring. This was then ligated with a 0 Polysorb suture and excised. This was sent to pathology as a specimen labeled hernia sac left side. Fibers of the internal oblique aponeurosis were then followed by the transversalis aponeurosis. The preperitoneal space was then entered and widened with an open Ray-Kilo sponge. A medium PHS mesh was then obtained. The circular underlay was placed in the preperitoneal space the overlay was then secured to the pubic tubercle conjoined tendon and shelving edge of the inguinal ligament using a 0 Polysorb suture. A slit was made in the mesh at the internal ring and wrapped around the spermatic cord. This was then secured to the shelving edge of the inguinal ligament using a 0 Polysorb suture. The remainder of the mesh was placed below the aponeurosis laterally. After assuring adequate hemostasis the wounds were irrigated and suctioned dry. Additional local was infiltrated at this time. The external oblique aponeurosis was then closed using a running 2 0 Polysorb suture. Rudy's fascia and dermis were reapproximated using interrupted 3-0 Polysorb sutures. Skin was then closed using a running subcuticular 4 0 Polysorb suture. Attention was then directed to the right inguinal hernia. Incision was then made over the inguinal ligament carried out through subcutaneous tissue, past Rudy's fascia and up to the external oblique aponeurosis. Additional local was infiltrated below the aponeurosis. Incision was made with a scalpel in the aponeurosis and widened with the Metzenbaum scissors. The spermatic cord was then dissected from the surrounding inguinal contents. This was then retracted using a Toshia drain. No direct hernia could be identified on the floor. A dense adhesion was noted to the external oblique aponeurosis which appeared to be chronic inflammation from a indirect hernia. Fibers of the cremasteric muscle were then . A dense thick indirect sac was identified. This was dissected from the dense adhesions up to the internal ring. The sac was then reduced into the abdominal cavity. Attention was then directed to the floor of the inguinal canal. Fibers of the internal oblique and transversalis aponeurosis were then and the preperitoneal space entered. This was then widened with open Ray-Kilo sponge. A medium PHS mesh was then obtained. The circular underlay was placed in the preperitoneal space and the overlay was secured to the pubic tubercle, conjoined tendon, and shelving edge of the inguinal ligament using a 0 Polysorb suture. A slit was made in the mesh at the internal ring and wrapped around the spermatic cord. This was then secured to the shelving edge of the inguinal ligament. The remainder of the mesh was placed below the external oblique aponeurosis. Wounds were then irrigated with saline solution and suctioned dry. Wounds were checked for hemostasis. Additional local was infiltrated in the subcutaneous tissue. External oblique aponeurosis was then closed using a running 2 0 Polysorb suture. Rudy's fascia and dermis reapproximated using interrupted 3- 0 Polysorb sutures. Skin was then closed using a running subcuticular 4 0 Polysorb suture. Steri-Strips 2 x 2 gauze and Tegaderm were applied to both incisions. The patient tolerated the procedure well. Sponge, instrument, needle counts were reported as correct. The patient was transferred to PACU in stable condition.
[2020-05-07] MEDS: oxyCODONE HCl Immed Release 5 MG TABLET PO ×2 (11:01→11:51)
[2020-05-07] MEDS: fentaNYL citrate/PF 100 MCG/2 ML VIAL 50 MCG IVPUSH (11:50)
[2020-05-07] MEDS: Acetaminophen 325 MG TABLET 650 MG PO (11:51)
== END 2020-05-07 14:45 | disposition home or self-care (01) ==
PROVIDERS: PCP Family Medicine; Visit Provider Surgery
PROC: (CPT 49505; principal; 2020-05-07 08:30)
DX: K40.20 Bilateral inguinal hernia, without obstruction or gangrene, not specified as recurrent (principal); D17.6 Benign lipomatous neoplasm of spermatic cord; K66.0 Peritoneal adhesions (postprocedural) (postinfection); Z87.11 Personal history of peptic ulcer disease; Z86.19 Personal history of other infectious and parasitic diseases; Z79.899 Other long term (current) drug therapy
CPT/HCPCS: 49505 ×2; 88302; 88304; C1781; J0690; J1100; J2250; J2405; J3010

== ENCOUNTER 2020-05-19 09:58 | Outpatient (REF) | payer MEDICAID, SELFPAY ==
--- NOTE | ~2020-05-19 | XR_ITS ---
EXAMINATION: XR KNEE, LEFT CLINICAL INFORMATION: Left knee pain. COMPARISON: None TECHNIQUE: Four views of the left knee. FINDINGS: Bones and soft tissues are normal. No fracture or joint effusion. Alignment is anatomic. Joint spaces are well maintained. No abnormal soft tissue calcification. XR/XR knee LT 4V IMPRESSION: Unremarkable examination.
== END 2020-05-19 09:59 | disposition home or self-care (01) ==
LOC: HO.XRAY 09:58
PROVIDERS: PCP Internal Medicine; Visit Provider Internal Medicine
DX: M25.562 Pain in left knee (principal); K40.20 Bilateral inguinal hernia, without obstruction or gangrene, not specified as recurrent
CPT/HCPCS: 73564; 99212

== ENCOUNTER → 2020-05-27 14:05 | Outpatient (BNVA) | payer MEDICAID, SELFPAY | PROVIDERS: PCP Family Medicine; Visit Provider Nurse Practitioner ==

== ENCOUNTER → 2020-06-16 11:18 | Outpatient (BNVA) | payer MEDICAID, SELFPAY | PROVIDERS: PCP Internal Medicine; Referring Provider Internal Medicine; Visit Provider Surgery | DX: Z48.815 Encounter for surgical aftercare following surgery on the digestive system (principal); Z87.19 Personal history of other diseases of the digestive system | CPT/HCPCS: 99212 ==

== ENCOUNTER → 2020-07-16 10:11 | Outpatient (BNVA) | payer MEDICAID, SELFPAY | PROVIDERS: PCP Internal Medicine; Visit Provider Surgery | DX: Z48.815 Encounter for surgical aftercare following surgery on the digestive system (principal); Z87.19 Personal history of other diseases of the digestive system | CPT/HCPCS: 99212 ==

== ENCOUNTER 2020-12-01 09:00 | Outpatient (REF) | payer MEDICAID, SELFPAY | END 2020-12-01 09:01 | disposition home or self-care (01) | LOC: CF 09:00 | PROVIDERS: Visit Provider Nurse Practitioner | DX: K21.9 Gastro-esophageal reflux disease without esophagitis (principal); Z87.11 Personal history of peptic ulcer disease; Z86.19 Personal history of other infectious and parasitic diseases; Z12.11 Encounter for screening for malignant neoplasm of colon | CPT/HCPCS: 87338; 99212 ==

== ENCOUNTER → 2021-01-04 16:13 | Outpatient (BNVA) | payer MEDICAID, SELFPAY | PROVIDERS: Visit Provider Nurse Practitioner ==

== ENCOUNTER 2022-12-12 09:16 | Outpatient (REF) | payer OTHER, SELFPAY ==
--- NOTE | ~2022-12-12 | XR_ITS ---
EXAMINATION: XR SHOULDER, LEFT CLINICAL INFORMATION: Reason for Exam PAIN COMPARISON: Shoulder radiographs 03/09/2009 TECHNIQUE: Four views of the shoulder. FINDINGS: No acute fracture or dislocation. Mild degenerative changes of the acromioclavicular joint with degenerative spurring. Soft tissues are unremarkable. XR/XR shoulder LT min 2V IMPRESSION: * Mild degenerative changes of the shoulder.
== END 2022-12-12 09:17 | disposition home or self-care (01) ==
LOC: HO.HHCX 09:16
PROVIDERS: Visit Provider Internal Medicine
DX: G89.29 Other chronic pain (principal); M25.512 Pain in left shoulder
CPT/HCPCS: 73030

== ENCOUNTER 2022-12-28 10:46 | Outpatient (REF) | payer OTHER, SELFPAY ==
[2022-12-28 13:11] LABS: MANUAL DIFF FLAG NO
[2022-12-28 13:23] LABS: Basophils Absolute Auto 0.1 X10*3/uL (0.0-0.2); Basophils Percent Auto 0.7 % (0-2); Eosinophils Absolute Auto 0.3 X10*3/uL (0.0-0.4); Eosinophils Percent Auto 3.3 % (0-4); Hematocrit 44.4 % (42.0-52.0); Hemoglobin 14.4 g/dl (14.0-18.0); Imm Gran Abs Auto 0.01 X10*3/uL (0.00-0.03); Imm Gran Pct Auto 0.1 % (0.0-0.4); Lymphocytes Absolute Auto 2.1 X10*3/uL (1.2-4.9); Lymphocytes Percent Auto 27.7 % (20-40); Mean Corpuscular HGB Conc 32.4 g/dl (31.0-36.0); Mean Corpuscular Hemoglobin 30.9 pg (27.0-33.0); Mean Corpuscular Volume 95.3 fL (80.0-98.0); Mean Platelet Volume 11.8 fL (9.4-12.4); Monocytes Absolute Auto 0.6 X10*3/uL (0.1-1.2); Monocytes Percent Auto 7.4 % (2-11); Neutrophils Absolute Auto 4.7 x10*3/uL (2.0-8.3); Neutrophils Percent Auto 60.8 % (45-73); Platelet Count 212 X10*3/uL (160-400); Red Blood Count 4.66 X10*6/uL (4.60-5.80); Red Cell Distribution Width 12.7 % (11.0-16.0); White Blood Count 7.7 X10*3/uL (4.8-10.8)
[2022-12-28 13:32] LABS: Rheumatoid Factor < 13.0 IU/mL (<15.0)
[2022-12-28 13:42] LABS: Alanine Aminotransferase 25 U/L (0-40); Albumin Level 4.3 g/dL (3.5-5.0); Alkaline Phosphatase 48 U/L (39-117); Anion Gap 8 (12-20); Aspartate Amino Transferase 20 U/L (5-37); Bilirubin Direct 0.3 mg/dL (0.0-0.5); Bilirubin Total 0.7 mg/dL (0.0-1.0); Blood Urea Nitrogen 14 mg/dL (9-16); C Reactive Protein 0.15 mg/dL (< or = 0.50); Calcium 9.4 mg/dL (8.4-10.2); Carbon Dioxide 29 mmol/L (22-29); Chloride 108 mmol/L (96-108); Cholesterol 137 mg/dL (<200); Estimated Glomerular Filt Rate > 60; Glucose Random 87 mg/dL (60-115); HDL Cholesterol 50 mg/dL (>40); LDL Cholesterol Calculated 77 mg/dL (<100); Potassium 4.1 mmol/L (3.3-5.1); Sodium 141 mmol/L (135-145); Total Protein 7.9 g/dL (6.5-8.0); Triglycerides 52 mg/dL (<150)
[2022-12-28 13:53] LABS: HIV AB/AG Nonreactive (Nonreactive); HIV Num 1 0.06 S/CO (0.00-0.99); ~HepC Num1 0.14 S/CO (0.00-0.79); ~Hepatitis C Antibody Nonreactive (Nonreactive)
[2022-12-28 13:59] LABS: TSH reflex Free T4 0.93 uIU/mL (0.32-4.0)
[2022-12-28 14:10] LABS: Erythrocyte Sedimentation Rate 5 MM/HR (0-15)
[2023-01-02 14:48] LABS: Anti Nuclear Antibody Screen NEGATIVE (NEGATIVE)
== END 2022-12-28 10:47 | disposition home or self-care (01) ==
LOC: HO.HHCL 10:46
PROVIDERS: Visit Provider Internal Medicine
DX: Z00.00 Encounter for general adult medical examination without abnormal findings (principal); Z11.4 Encounter for screening for human immunodeficiency virus [HIV]; M25.50 Pain in unspecified joint; G47.00 Insomnia, unspecified; R12 Heartburn; K29.50 Unspecified chronic gastritis without bleeding; E55.9 Vitamin D deficiency, unspecified
CPT/HCPCS: 36415; 80048; 80061; 80076; 84443; 85025; 85652; 86038; 86140; 86431; 86803; 87389

== ENCOUNTER 2023-01-04 08:05 | Outpatient (AMB) | payer MEDICAID, SELFPAY ==
--- NOTE | 2023-01-04 08:08 | A.OFFVIS_ITS ---
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 Patient reports shoulder pain presented about 8 months ago. States pain starts in his shoulder and at times radiates to his back. He was seen by his PCP who ordered xrays and referred to orthopedics. No other tx. Finds no relief with Advil. 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 He was seen by his PCP who ordered x-rays and he was referred to our office. He states he has pain in her left shoulder which occasional radiates to his back. His pain is aggravated at night. He denies pain with performing daily activities. He finds no relief with Advil. He has not had any treatment in the past. He does not have a history of diabetes. [facility] Medical History (Updated 01/04/23 @ 08:28 by Silverio Castaneda PA-C) Colon cancer screening History of Helicobacter pylori infection History of peptic ulcer disease GERD (gastroesophageal reflux disease) Surgical History H/O bilateral inguinal hernia repair History of esophagogastroduodenoscopy (EGD) Hx of colonoscopy Family History Father HTN (hypertension) Prostate cancer Asthma Kidney stones Mother HTN (hypertension) Social History (Updated 01/04/23 @ 08:14 by Ruth F Michael, RMA) Household Members: Family Alcohol intake: current Alcohol intake frequency: holidays/special occasions only Patient Tobacco Use Status: Never used Tobacco Current occupational status: employed Current occupation: [employer], right hand dominant Review of Systems Const All systems reviewed & are unremarkable except as noted in HPI and below Physical Exam Vital Signs: BMI result Body Mass Index 23.7 Const General: cooperative, healthy appearing, comfortable, no acute distress, well developed and alert Orientation/consciousness: patient oriented x3 HEENT Head: Yes normal to inspection, Yes normocephalic and Yes atraumatic Eyes General: appearance normal, both eyes and all related structures Resp Effort & Inspection: normal respiratory effort and able to speak in complete sentences Cardio Rate: regular rate Peripheral pulses: Peripheral pulses 2+ throughout GI Palpation (GI): Soft to palpation Skin Lesions: no lesions Rashes: no rashes Neuro General: patient oriented x3 Extrem Other: Left shoulder normal to inspection. Tenderness over the bicipital groove and along the deltoid region of the shoulder. Forward flexion to 175, external rotation to 90, internal rotation to S1. 5/5 RTC strength. Positive O'briens. Negative Liu and cross body abduction. NVI. Office Procedures Joint Injection/Drain Joint Injection/Drain Primary Site: left shoulder Prep: site was prepped using aseptic technique, ethochloride spray was applied and injection warnings given Injected: 80 mg of, DepoMedrol, with 8 mL of, 1% plain lidocaine and in the subcromial space Approach Used: posterolateral Procedure: The patient tolerated the procedure well and there was some relief with the local anesthesia Coding 90141 - Glenohumeral/Tronchanteric Bursa/Intraarticular Procedure code (CPT) selection complete Results Reviewed Results Reviewed: xrays of the left shoulder obtained on 12/12/22 show well preserved ghjoint space, mild ac joint oa, no significatn spurring of the acromion. Assessment & Plan Assessment & Plan (1) Biceps tendonitis on left: Code(s): M75.22 - Bicipital tendinitis, left shoulder Plan We discussed options today which include steroid injection. They did consent to move forward with the left shoulder injection, which was tolerated well. I recommended rest, ice and elevation and OTC anti-inflammatories PRN for discomfort. He was also referred to a course of physical therapy in the office today. If symptoms persist or worsens over the next 6-8 weeks, patient will contact the office, otherwise follow-up as needed. Orders: Orders PT Evaluation and Treatment Today M75.22 - Bicipital tendinitis, left shoulder Patient Instructions: Scribed for Silverio Castaneda PA-C, by Jeff Ruvalcaba medical clinic manager, on 01/04/2023 at 8:00 AM EST. I, Silverio Castaneda PA-C, have personally reviewed and agree with the information entered by the scribe. Coding Level of Care Code New Pt Level 3 (32054) Diagnoses Biceps tendonitis on left M75.22 CPT Codes Coding - Joint 7: 40156 - Glenohumeral/Tronchanteric Bursa/Intraarticular ([id number])
[2023-01-04 08:11] VITALS: BMI 23.7
== END 2023-01-04 08:53 | disposition home or self-care (01) ==
PROVIDERS: PCP Internal Medicine; Visit Provider Physician Assistant
DX: M75.22 Bicipital tendinitis, left shoulder (principal)
CPT/HCPCS: 20610; 99203

== ENCOUNTER → 2023-01-04 08:05 | Outpatient (BNVA) | payer OTHER, SELFPAY | PROVIDERS: PCP Internal Medicine; Visit Provider Physician Assistant | DX: M75.22 Bicipital tendinitis, left shoulder (principal) | CPT/HCPCS: 20610; 99212; J1040 ==

== ENCOUNTER 2024-01-01 10:13 | Outpatient (REF) | payer OTHER, SELFPAY ==
[2024-01-01 11:15] LABS: MANUAL DIFF FLAG NO
[2024-01-01 11:40] LABS: Basophils Absolute Auto 0.1 X10*3/uL (0.0-0.2); Basophils Percent Auto 0.9 % (0-2); Eosinophils Absolute Auto 0.4 X10*3/uL (0.0-0.4); Eosinophils Percent Auto 5.4 % (0-4); Hematocrit 43.9 % (42.0-52.0); Hemoglobin 14.4 g/dl (14.0-18.0); Imm Gran Abs Auto 0.02 X10*3/uL (0.00-0.03); Imm Gran Pct Auto 0.3 % (0.0-0.4); Lymphocytes Percent Auto 29.9 % (20-40); Mean Corpuscular HGB Conc 32.8 g/dl (31.0-36.0); Mean Corpuscular Hemoglobin 30.8 pg (27.0-33.0); Mean Platelet Volume 11.8 fL (9.4-12.4); Monocytes Absolute Auto 0.5 X10*3/uL (0.1-1.2); Monocytes Percent Auto 6.9 % (2-11); Neutrophils Absolute Auto 3.7 x10*3/uL (2.0-8.3); Neutrophils Percent Auto 56.6 % (45-73); Platelet Count 220 X10*3/uL (160-400); Red Blood Count 4.67 X10*6/uL (4.60-5.80); Red Cell Distribution Width 12.8 % (11.0-16.0); White Blood Count 6.6 X10*3/uL (4.8-10.8)
[2024-01-01 12:17] LABS: Estimated Average Glucose 114 mg/dL; Hemoglobin A1C 138.9958 umol/L; Hemoglobin A1c % 5.6 % (<6.0)
[2024-01-01 14:10] LABS: Alanine Aminotransferase 23 U/L (0-40); Albumin Level 4.3 g/dL (3.5-5.0); Alkaline Phosphatase 49 U/L (39-117); Anion Gap 12 (12-20); Aspartate Amino Transferase 24 U/L (5-37); Blood Urea Nitrogen 16 mg/dL (9-16); Calcium 9.3 mg/dL (8.4-10.2); Carbon Dioxide 28 mmol/L (22-29); Chloride 105 mmol/L (96-108); Cholesterol 126 mg/dL (<200); Estimated Glomerular Filt Rate > 60; Glucose Random 80 mg/dL (60-115); HDL Cholesterol 50 mg/dL (>40); LDL Cholesterol Calculated 65 mg/dL (<100); Potassium 4.7 mmol/L (3.3-5.1); Sodium 140 mmol/L (135-145); Total Protein 7.3 g/dL (6.5-8.0); Triglycerides 55 mg/dL (<150); Vitamin D 25-OH Total 42.2 ng/mL (>30)
[2024-01-02 08:12] LABS: HIV AB/AG Nonreactive (Nonreactive); HIV Num 1 0.05 S/CO (0.00-0.99); ~HepC Num1 0.12 S/CO (0.00-0.79); ~Hepatitis C Antibody Nonreactive (Nonreactive)
== END 2024-01-01 10:14 | disposition home or self-care (01) ==
LOC: HO.HHCL 10:13
PROVIDERS: Visit Provider Internal Medicine
DX: Z00.00 Encounter for general adult medical examination without abnormal findings (principal); Z13.1 Encounter for screening for diabetes mellitus; Z13.6 Encounter for screening for cardiovascular disorders; Z11.4 Encounter for screening for human immunodeficiency virus [HIV]
CPT/HCPCS: 36415; 80053; 80061; 82306; 83036; 85025; 86803; 87389